=== PATIENT | female | born 1975 | race Caucasian/White ===

== ENCOUNTER 2017-12-16 18:41 | Emergency (ER) | payer OTHER ==
[2017-12-16 18:54] VITALS: BP 134/88; PULSE 61; RESP 18; TEMP 98.8; O2SAT 100
[2017-12-16 20:45] LABS: BASO % 0.2 % (0.0-2.0); EOS % 0.3 % (0.0-4.0); HEMOGLOBIN 13.2 g/dL (12.0-16.0); LYMPH # 2.1 K/uL (1.0-4.3); LYMPH % 13.5 % (20.0-40.0); MEAN CELL VOLUME 86.1 fl (81.0-99.0); MEAN CORPUSCULAR HEMOGLOBIN 28.4 pg (27.0-31.0); MEAN PLATELET VOLUME 9.7 fl (7.2-11.7); MONO # 0.8 K/uL (0.0-0.8); MONO % 4.7 % (0.0-10.0); NEUT # 12.9 K/uL (1.8-7.0); NEUT % 81.3 % (50.0-75.0); RBC 4.65 Mil/uL (3.80-5.20); RED CELL DISTRIBUTION WIDTH 14.1 % (11.5-14.5); WHITE BLOOD COUNT 15.9 K/uL (4.8-10.8)
--- NOTE | 2017-12-16 21:47 | ED PDOC ---
HPI: Female Pain Time Seen by Provider: 12/16/17 19:20 Chief Complaint (Nursing): Female Genitourinary Chief Complaint (Provider): Vaginal bleeding History Per: Patient History/Exam Limitations: no limitations Onset/Duration Of Symptoms: Days (x1) Associated Symptoms: denies: Other (abdominal pain) Additional Complaint(s): Macrina Mesa is a 42 year old Yor[place] female, with no significant past medical history, who presents to the emergency department complaining of vaginal bleeding onset for x1 day s/p 2nd embryo transfers by IVF x1 week ago. Patient reports embryo transfers were done by a fertility specialist at a [facility]. Patient states she developed vaginal bleeding today described as spotting but denies any associated abdominal pain, vaginal discharge or dysuria. No further medical complaints. PMD: None provided. Abnormal Vaginal Bleeding: Yes : 2 Para: 0 Miscarriage: 0 Past Medical History Reviewed: Historical Data, Nursing Documentation, Vital Signs Vital Signs: Last Vital Signs Temp 98.8 F 12/16/17 18:52 Pulse 61 12/16/17 18:52 Resp 18 12/16/17 18:52 BP 134/88 12/16/17 18:52 Pulse Ox 100 12/16/17 18:52 - Medical History PMH: No Chronic Diseases - Surgical History Other surgeries: D&C from previous IVF - Family History Family History: States: Unknown Family Hx - Allergies Allergies/Adverse Reactions: Allergies Allergy/AdvReac Type Severity Reaction Status Date / Time No Known Allergies Allergy Verified 12/16/17 18:52 Review of Systems ROS Statement: Except As Marked, All Systems Reviewed And Found Negative Gastrointestinal: Negative for: Abdominal Pain Genitourinary Female: Positive for: Vaginal Bleeding (spotting). Negative for: Dysuria, Vaginal Discharge Physical Exam - Reviewed Nursing Documentation Reviewed: Yes Vital Signs Reviewed: Yes - Physical Exam Appears: Positive for: No Acute Distress Head Exam: Positive for: ATRAUMATIC, NORMAL INSPECTION, NORMOCEPHALIC Skin: Positive for: Normal Color, Warm, Dry Eye Exam: Positive for: Normal appearance, EOMI, PERRL Neck: Positive for: Painless ROM Cardiovascular/Chest: Positive for: Regular Rate, Rhythm. Negative for: Murmur Respiratory: Positive for: Normal Breath Sounds. Negative for: Respiratory Distress Gastrointestinal/Abdominal: Positive for: Normal Exam, Soft. Negative for: Tenderness, Guarding, Rebound Back: Positive for: Normal Inspection. Negative for: L CVA Tenderness, R CVA Tenderness, Vertebral Tenderness Extremity: Positive for: Normal ROM (upper and lower extremities). Negative for : Deformity, Swelling Neurologic/Psych: Positive for: Alert, Oriented. Negative for: Motor/Sensory Deficits - Laboratory Results Result Diagrams: 12/16/17 20:27 - ECG O2 Sat by Pulse Oximetry: 100 (RA) Pulse Ox Interpretation: Normal Medical Decision Making Medical Decision Making: Time: 19:20 Initial Impression: bleeding in early associated with recent embryonic transfer and IVF Initial Plan: --ABO/RH Type --Type and Screen --Beta-HCG, Quantitative --Urine --Urine dipstick --CBC w/ differential --Reevaluation -Labs showed no clinical significant abnormalities. 21:40 -Beta-HCG was noted to be very low for a pt. with recent embryonic transfer, this was communicated to the patient. Pt. 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 Impression threatened miscarriage and pelvic rest ----- Scribe Attestation: Documented by Davy James, acting as a scribe for Bob Espinal MD. Provider Scribe Attestation: All medical record entries made by the Scribe were at my direction and personally dictated by me. I have reviewed the chart and agree that the record accurately reflects my personal performance of the history, physical exam, medical decision making, and the department course for this patient. I have also personally directed, reviewed, and agree with the discharge instructions and disposition. Disposition - Clinical Impression Clinical Impression: Threatened miscarriage - Disposition Disposition: Routine/Home Disposition Time: 21:40 Condition: STABLE Instructions: Threatened Miscarriage Forms: [employer] (French)
== END 2017-12-16 21:49 | disposition home or self-care (01) ==
LOC: H.ER 18:41
DX: O20.0 Threatened abortion (principal)